=== PATIENT | female | born 1970 | race Caucasian/White ===

== ENCOUNTER 2017-12-21 10:27 | Outpatient (CLI) | payer OTHER ==
--- NOTE | 2017-12-31 16:20 | Mammography Report ---
DATE OF SERVICE: 12/21/2017 DIGITAL SCREENING MAMMOGRAM: 12/21/2017 CLINICAL INDICATION: A 47-year-old with history of late childbearing, for screening. COMPARISON: Films from [place], [place] dated 01/08/2014. TECHNIQUE: Routine CC and MLO projections were obtained of the breasts. Bilateral laterally exaggerated craniocaudal views. FINDINGS: Scattered fibroglandular tissue is present within the breasts. There are no dominant masses, suspicious microcalcifications, or secondary signs of malignancy. In comparison to the previous studies, there are no significant changes. ASSESSMENT: NO MAMMOGRAPHIC EVIDENCE OF MALIGNANCY. NO SIGNIFICANT INTERVAL CHANGES. RECOMMENDATION: Screening mammography is recommended annually. BIRADS category 1 - negative. STANDARD QUALIFYING STATEMENTS: 1. This examination was reviewed with the aid of Computed-Aided Detection (CAD). 2. A negative or benign imaging report should not delay biopsy if clinically suspicious findings are present. Consider surgical consultation if warranted. More than 5% of cancers are not identified by imaging. 3. Dense breasts may obscure an underlying neoplasm. TD: 12/31/2017 16:20
== END 2017-12-21 10:28 | disposition home or self-care (01) ==
LOC: DI.S 10:27
PROVIDERS: ATTEND Physician Assistant
DX: Z12.31 Encounter for screening mammogram for malignant neoplasm of breast (principal)
CPT/HCPCS: 77067

== ENCOUNTER 2019-10-16 10:04 | Outpatient (CLI) | payer OTHER ==
--- NOTE | 2019-10-17 08:48 | Mammography Report ---
Reason: ROUTINE MAMMO Procedure Date: 10/16/2019 Accession Number: [id number] / [id number] Procedure: MGS - Screening Mammo Dig Bilat CPT Code: Final Report FULL RESULT: EXAM: Screening Mammo Dig Bilat DATE: 10/16/2019 10:39 AM CLINICAL HISTORY: Screening encounter. History of late childbearing. TECHNIQUE: (B) - Bilateral CC, laterally exaggerated CC, MLO views were obtained. COMPARISON: 11/20/2018 and 01/08/2014. PARENCHYMAL PATTERN: (A) - The breast(s) demonstrate(s) scattered fibroglandular densities. FINDINGS: There are no suspicious masses, calcifications, or areas of distortion. IMPRESSION: Negative examination. BI-RADS category 1. RECOMMENDATION: (ANNUAL) - Recommend routine annual screening mammography. BI-RADS CATEGORY: (1) - Negative. STANDARD QUALIFYING STATEMENTS: 1. This examination was reviewed with the aid of Computer-Aided Detection (CAD). 2. A negative or benign imaging report should not preclude biopsy if clinically suspicious findings are present. 3. Dense breasts may obscure an underlying neoplasm. 4. This examination was reviewed without the aid of 3D breast imaging (tomosynthesis).
== END 2019-10-16 10:05 | disposition home or self-care (01) ==
LOC: DI.S 10:04
PROVIDERS: ATTEND Physician Assistant
DX: Z12.31 Encounter for screening mammogram for malignant neoplasm of breast (principal)
CPT/HCPCS: 77067

== ENCOUNTER 2019-10-16 10:05 | Outpatient (CLI) | payer OTHER ==
--- NOTE | 2019-10-16 14:36 | XRAY Report ---
Reason: RT SHOULDER PAIN Procedure Date: 10/16/2019 Accession Number: [id number] / [id number] Procedure: XRS - Shoulder 3 View RT CPT Code: Final Report FULL RESULT: EXAM: RIGHT SHOULDER RADIOGRAPHY EXAM DATE: 10/16/2019 10:41 AM. CLINICAL HISTORY: Right shoulder pain. COMPARISON: None. TECHNIQUE: 3 views. FINDINGS: Bones: Normal. No fracture or bone lesion. Joints: The glenohumeral and acromioclavicular joints are normally located with mild degenerative changes of the AC joint. Soft tissues: The visualized hemithorax is unremarkable. No soft tissue swelling. IMPRESSION: Mild degenerative changes. RADIA
== END 2019-10-16 10:06 | disposition home or self-care (01) ==
LOC: DI.S 10:05
PROVIDERS: ATTEND Physician Assistant
DX: M19.011 Primary osteoarthritis, right shoulder (principal)

== ENCOUNTER 2020-06-14 13:11 | Outpatient (CLI) | payer OTHER | END 2020-06-14 13:12 | disposition home or self-care (01) | LOC: COV 13:11 | PROVIDERS: ATTEND Family Medicine | DX: Z20.828 Contact with and (suspected) exposure to other viral communicable diseases (principal) ==

== ENCOUNTER 2021-06-03 09:26 | Outpatient (CLI) | payer OTHER ==
[2021-06-03 17:14] LABS: BASOPHILS # (AUTO) 0.1 10^3/uL (0.0-0.1); EOSINOPHILS # (AUTO) 0.1 10^3/uL (0.0-0.7); EOSINOPHILS % (AUTO) 2.4 %; HCT - HEMATOCRIT 43.2 % (37.0-47.0); HGB - HEMOGLOBIN 13.7 g/dL (12.0-16.0); LYMPHOCYTES # (AUTO) 1.7 10^3/uL (1.5-3.5); LYMPHOCYTES % (AUTO) 34.4 %; MEAN CORPUSCULAR HEMOGLOBIN 27.6 pg (27.0-31.0); MEAN CORPUSCULAR HGB CONC 31.7 g/dL (32.0-36.0); MEAN CORPUSCULAR VOLUME 87.1 fL (81.0-99.0); MEAN PLATELET VOLUME 10.3 fL (7.9-10.8); MONOCYTES # (AUTO) 0.5 10^3/uL (0.0-1.0); NEUTROPHILS # (AUTO) 2.5 10^3/uL (1.5-6.6); PLT - PLATELET COUNT 281 10^3/uL (130-450); RED BLOOD COUNT 4.96 10^6/uL (4.20-5.40); RED CELL DISTRIBUTION WIDTH 14.3 % (12.0-15.0); WHITE BLOOD COUNT 4.9 x10^3/uL (4.8-10.8)
[2021-06-03 17:27] LABS: ESTIMATED AVERAGE GLUCOSE 217 mg/dL (70-100); HEMOGLOBIN A1c% 9.2 % (4.27-6.07)
[2021-06-03 17:28] LABS: ALBUMIN 4.4 g/dL (3.2-5.5); ALBUMIN/GLOBULIN RATIO 1.8 (1.0-2.2); ALKALINE PHOSPHATASE 77 IU/L (42-121); ALT ALANINE AMINOTRANSFERASE 16 IU/L (10-60); AST ASPARTATE AMINOTRANSFERASE 13 IU/L (10-42); BILIRUBIN,TOTAL 1.1 mg/dL (0.2-1.0); BUN - BLOOD UREA NITROGEN 9 mg/dL (6-20); CALCIUM 8.7 mg/dL (8.5-10.3); CARBON DIOXIDE - CO2 28 mmol/L (21-32); CHLORIDE 100 mmol/L (101-111); CHOL/HDL RATIO 3.9 (<4.4); CHOLESTEROL 218 mg/dL; CREATININE 0.4 mg/dL (0.4-1.0); GFR - MDRD 169 (>89); GLUCOSE 156 mg/dL (70-100); HDL CHOLESTEROL 56 mg/dL; LDL CHOLESTEROL,CALCULATED 151 mg/dL; LDL/HDL RATIO 2.7 (<4.4); SODIUM 137 mmol/L (135-145); TOTAL PROTEIN 6.9 g/dL (6.7-8.2); TRIGLYCERIDES 54 mg/dL; VLDL CHOLESTEROL 11 mg/dL
[2021-06-03 18:49] LABS: CREATININE,URINE 95.9 mg/dL; MICROALBUM/CREATININE RATIO,UR 4.2 ug/mg (<30.0); MICROALBUMIN,URINE 0.4 mg/dL (0-300.0)
== END 2021-06-03 09:27 | disposition home or self-care (01) ==
LOC: LAB.S 09:26
PROVIDERS: ATTEND Nurse Practitioner Family
DX: E10.65 Type 1 diabetes mellitus with hyperglycemia (principal)
CPT/HCPCS: 36415; 80053; 80061; 82043; 82570; 83036; 83721; 84443; 85025

== ENCOUNTER 2023-02-15 12:58 | Outpatient (CLI) | payer OTHER ==
--- NOTE | 2023-02-16 12:44 | Mammography Report ---
BILATERAL DIGITAL SCREENING MAMMOGRAM 3D/2D WITH EXAGGERATED CC: 02/15/2023 CLINICAL: Routine screening. Comparison is made to exams dated: 10/16/2019 mammogram, 12/21/2017 mammogram - [facility], and 01/08/2014 mammogram - [facility]. There are scattered areas of fibroglandular density in both breasts (category b / 25%-50% glandular t issue). No significant masses, calcifications, or other findings are seen in either breast. There has been no significant interval change. IMPRESSION: NEGATIVE There is no mammographic evidence of malignancy. A 1 year screening mammogram is recommended. Based on the Tyrer Cuzick model (a risk assessment model) the patients lifetime risk is 10.3% and he r 10 year risk is 2.7%. According to the ACR, ACS, and NCCN guidelines, an annual breast MRI exam bethany ng with mammogram is recommended if the patients lifetime risk is 20% or greater. This exam was interpreted at Station ID: [id number]. NOTE: For mammograms, a report in lay terms will be sent to the patient. Approximately 15% of breast malignancies will not be visualized mammographically. In the management of a palpable breast mass, a negative mammogram must not discourage biopsy of a clinically suspicious lesion. Electronically Signed By: Angel rios/deny:02/15/2023 14:54:19 letter sent: No_Letter ACR BI-RADS Category 1: Negative 3341F PARENCHYMAL PATTERN: (A) - The breast(s) demonstrate(s) scattered fibroglandular densities. BI-RADS CATEGORY: (1) - 1 Mammogram [id number] 1 year screening LATERALITY: (B)
== END 2023-02-15 12:59 | disposition home or self-care (01) ==
LOC: DI.S 12:58
DX: Z12.31 Encounter for screening mammogram for malignant neoplasm of breast (principal)

== ENCOUNTER 2024-08-23 15:00 | Outpatient (CLI) | payer OTHER ==
--- NOTE | 2024-08-25 09:59 | MRI Report ---
PROCEDURE: Lumbar Spine WO INDICATIONS: LUMBAR RADICULOPATHY TECHNIQUE: Noncontrast sagittal T1 spin echo and T2 fast echo, sagittal STIR, axial T1 and T2 fast spin echo thr ough the lumbar spine. In cases with scoliosis, additional coronal T2 fast spin echo may be performe d. COMPARISON: None. FINDINGS: Image quality: Excellent. Alignment and Curvature: Mild levocurvature of the lumbar spine.. Bone Marrow: Marrow is of normal overall signal. No acute vertebral body compression fractures. Spinal Cord: Conus medullaris terminates at the L1-L2 level. Visualized cord demonstrates normal si gnal and size. Paraspinous Soft Tissues: No paravertebral masses. T12-L1: Normal in appearance. L1-L2: Disc desiccation mild height loss. Mild diffuse disc bulge and small superimposed central d isc protrusion. No central canal or neuroforaminal stenosis. L2-L3: Normal in appearance. L3-L4: Disc desiccation without height loss. Mild diffuse disc bulge with superimposed small centra l disc protrusion and annular fissure. Facet arthropathy. No significant central canal stenosis. No n euroforaminal stenosis. L4-L5: Disc desiccation and mild diffuse disc bulge. Mild facet arthropathy. No significant central canal or neural foraminal stenosis. L5-S1: Disc desiccation and mild height loss. Diffuse disc bulge with left paracentral superimposed disc protrusion. No significant central canal stenosis. No neuroforaminal stenosis. IMPRESSION: Mild multilevel degenerative changes of the lumbar spine as described above. No significant central c anal or neuroforaminal stenosis. Reviewed by: Dipesh Tompkins MD on 08/25/2024 9:57 AM PDT Approved by: Dipesh Tompkins MD on 08/25/2024 9:57 AM PDT Station ID: [id number]
== END 2024-08-23 15:01 | disposition home or self-care (01) ==
LOC: DI 15:00
DX: M47.816 Spondylosis without myelopathy or radiculopathy, lumbar region (principal); M51.36 Other intervertebral disc degeneration, lumbar region; M51.26 Other intervertebral disc displacement, lumbar region; M51.37 Other intervertebral disc degeneration, lumbosacral region; M51.27 Other intervertebral disc displacement, lumbosacral region